=== PATIENT | female | born 2000 | race Caucasian/White ===

== ENCOUNTER 2024-05-03 11:07 | Inpatient (IN) | payer BC, MEDICAID ==
[~2024-05-03] VITALS: Ht 167.6 cm; Wt 71.6 kg
[~2024-05-03 11:07] MED LIST: LAMO25TA5 PO; LUMA42CA PO; TEMA15CA5 PO
[2024-05-03] MEDS ORDERED: LORazepam 2 mg/ml vial IM ONE (11:50)
[2024-05-03] MEDS: haloperidol lactate 5mg/ml inj IM ONE ×3 (12:02→22:05)
[2024-05-03] MEDS: MIDAZolam 5mg/ml 2ml vial ONE (12:03)
[2024-05-03] MEDS: diphenhydrAMINE 50 mg/ml inj IM ONE ×2 (12:03→20:01)
[2024-05-03] MEDS: MIDAZolam 5mg/ml 2ml vial IM ONE ×3 (12:23→22:05)
[2024-05-03 13:01] LABS: BASOPHILS % (AUTO) 0.4 % (0-1); EOSINOPHILS # (AUTO) 0.1 X10'3 (0-0.9); EOSINOPHILS % (AUTO) 1.3 % (0-6); HEMATOCRIT 42.5 % (35.0-45.0); HEMOGLOBIN 14.1 g/dl (12.0-16.0); LYMPHOCYTES # (AUTO) 0.8 X10'3 (1.1-4.8); LYMPHOCYTES % (AUTO) 13.7 % (21-51); MEAN CORPUSCULAR HEMOGLOBIN 30.5 PG (27.0-31.0); MEAN CORPUSCULAR HGB CONC 33.1 g/dL (33.0-36.5); MEAN CORPUSCULAR VOLUME 92.1 FL (78-98); MEAN PLATELET VOLUME 7.8 FL (7.4-10.4); MONOCYTES # (AUTO) 0.3 X10'3 (0-0.9); MONOCYTES % (AUTO) 5.6 % (2-12); NEUTROPHILS # (AUTO) 4.4 X10'3 (1.8-7.7); PLATELET COUNT 206 X10'3 (140-440); RED BLOOD COUNT 4.62 X10'6 (4.20-5.60); RED CELL DISTRIBUTION WIDTH 13.5 % (11.5-14.5); WHITE BLOOD COUNT 5.6 X10'3 (4.5-11.0)
[2024-05-03 13:24] LABS: ALBUMIN 4.1 G/DL (3.4-5.0); ANION GAP 11 (8-16); BLOOD UREA NITROGEN 7 MG/DL (7-18); BUN/CREATININE RATIO 6.5 (10.0-20.0); CALCIUM 8.5 MG/DL (8.5-10.1); CHLORIDE 107 MMOL/L (99-107); CREATININE 1.08 MG/DL (0.40-0.90); GLUCOSE 67 MG/DL (70-104); POTASSIUM 3.8 MMOL/L (3.5-5.1); SALICYLATE 1.5 MG/DL (4.0-20.0); SODIUM 143 MMOL/L (135-145); THYROID STIMULATING HORMONE 1.37 ulU/ml (0.34-4.50); TOTAL CARBON DIOXIDE 25.5 MMOL/L (24-32); eCRCL 75 ML/MIN; eGFR 62 ML/MIN
[2024-05-03 13:27] LABS: ACETAMINOPHEN < 2.0 UG/ML (10-30); ETHANOL < 10 MG/DL (<10)
[2024-05-03 13:46] LABS: BILIRUBIN,URINE NEGATIVE (Neg); CLARITY,URINE CLEAR (Clear); COLOR,URINE YELLOW (Yellow); GLUCOSE, URINE NEGATIVE (Neg); KETONES,URINE NEGATIVE (Neg); LEUKOCYTE ESTERASE ,URINE NEGATIVE (Neg); NITRITES, URINE NEGATIVE (Neg); OCCULT BLOOD,URINE TRACE-INTACT (Neg); PROTEIN,URINE NEGATIVE (Neg); UROBILINOGEN,URINE 0.2 E.U/dL (0.2-1.0)
[2024-05-03 13:47] LABS: URINE HCG NEGATIVE (NEG)
[2024-05-03 13:48] LABS: UA COLLECTION TYPE VOIDED
[2024-05-03 13:52] LABS: WBC,URINE 0-4 /HPF (0-4)
[2024-05-03 13:53] LABS: BACTERIA,URINE 1+ /HPF (Neg); HYALINE CASTS 0-3 /LPF (NEGATIVE); MUCUS STRANDS FEW /LPF (Neg); SQUAMOUS EPITHELIAL CELL,UR MODERATE /LPF (FEW)
[2024-05-03 13:54] LABS: URINE AMPHETAMINE SCREEN NEGATIVE (Neg); URINE BARBITUATE SCREEN NEGATIVE (Neg); URINE BENZODIAZEPINES SCREEN POSITIVE (Neg); URINE CANNABINOID SCREEN POSITIVE (Neg); URINE COCAINE SCREEN NEGATIVE (Neg); URINE METHADONE SCREEN NEGATIVE (Neg); URINE OPIATE SCREEN NEGATIVE (Neg); URINE PHENCYCLIDINE SCREEN NEGATIVE (Neg)
[2024-05-04] MEDS: acetaminophen 325mg tablet PO ONE ×2 (05:22→15:12)
[2024-05-04] MEDS ORDERED: TEMA30CA PO (17:47)
[2024-05-04] MEDS ORDERED: LAMO100T PO (17:47)
[2024-05-04] MEDS ORDERED: PROP10TA10 PO (17:47)
[2024-05-04] MEDS ORDERED: VILA40TA2 PO (17:47)
[2024-05-04] MEDS: LORazepam 1 MG tablet PO ONE (18:02)
[2024-05-04] MEDS: propranolol 10mg tablet PO PRN (19:45)
[2024-05-04] MEDS: lamoTRIgine 100mg tablet PO SCH (20:04)
[2024-05-04] MEDS ORDERED: LUMA42CA PO (20:49)
[2024-05-04] MEDS ORDERED: mag hydrox/Alum hydrox/simeth 30ml oral suspension PO PRN (22:35)
[2024-05-04] MEDS ORDERED: magnesium hydroxide 30ml (MOM) UD suspension PO PRN (22:35)
[2024-05-04] MEDS ORDERED: acetaminophen 325mg tablet PO PRN ×2 (22:35)
[2024-05-04 22:46] VITALS: RESP 18
[2024-05-04] MEDS: temazepam 15mg capsule PO SCH (23:17)
[2024-05-05 07:30] VITALS: BP 119/66; PULSE 86; RESP 18; TEMP 98.1; O2SAT 97
[2024-05-05] MEDS: loperamide 2mg capsule PO PRN (08:03)
[2024-05-05 08:08] LABS: CHOL/HDL RATIO 2.5 (0.00-4.99); CHOLESTEROL 133 MG/DL (0-200); HDL CHOLESTEROL 54 MG/DL (35-60); LDL CHOLESTEROL 67 MG/DL (50-100); TRIGLYCERIDES 61 MG/DL (20-135)
[2024-05-05] MEDS: hydrOXYzine 25 MG tablet PO PRN (14:34)
[2024-05-05 18:56] VITALS: RESP 16
[2024-05-05] MEDS: Lumateperone Tosylate (Caplyta) 42 MG CAPSULE PO SCH (19:43)
[2024-05-05] MEDS: temazepam 15mg capsule PO PRN (19:43)
[2024-05-05 20:00] VITALS: BP 118/69; PULSE 100; RESP 20; TEMP 98.9; O2SAT 100
[2024-05-06 07:30] VITALS: BP 102/52; PULSE 85; RESP 15; TEMP 97.8; O2SAT 95
== END 2024-05-06 12:10 | disposition home or self-care (01) | DRG 885 ==
LOC: ER 11:08 → EDBD 11:08 → UNDOADMIN 05-04 17:00 → ADULT MH 05-04 17:00
PROVIDERS: ADMIT Psychiatry & Neurology Psychiatry; ATTEND Psychiatry & Neurology Psychiatry
DX: F31.81 Bipolar II disorder (principal); R45.851 Suicidal ideations; F12.90 Cannabis use, unspecified, uncomplicated; F41.9 Anxiety disorder, unspecified; F84.0 Autistic disorder; Z20.822 Contact with and (suspected) exposure to COVID-19; Z88.0 Allergy status to penicillin
CPT/HCPCS: 36415; 80048; 80061; 80178; 80305; 80320; 80329; 81001; 81025; 84443; 85025; 87081; 87811; 96372; 99291; J1200; J1630; J2250; Q0177